=== PATIENT | female | born 1930 | race Caucasian/White ===

== ENCOUNTER 2017-07-03 23:23 | Inpatient (IN) ==
[2017-07-03] MEDS ORDERED: ADENOSINE 6 MG/2 ML VIAL ONE (23:32)
[2017-07-04] MEDS ORDERED: SODIUM CHLORIDE 0.9% 500 ML IV STA (00:43)
[2017-07-04 01:22] LABS: Basophils # 0.1 10*3/uL (0.0-0.2); Basophils % 0.2 % (0.0-0.8); Immature Granulocytes % 0.6 %; Immature Granulocytes Absolute 0.15 #; Lymphocytes # 0.8 10*3/uL (1.4-4.0); Lymphocytes % 3.4 % (21.3-54.2); Mean Corpuscular HGB Conc 36.1 GM/DL (32-36); Mean Corpuscular Hemoglobin 29 PG (27-34); Mean Corpuscular Volume 79.5 FL (87-102); Mean Platelet Volume 9.3 FL (9.6-12.0); Monocytes # 1.6 10*3/uL (0.11-0.8); Neutrophils # 20.8 10*3/uL (1.4-7.4); Neutrophils % 88.8 % (38.7-73.9); Platelet Count 306 T/CUMM (130-400); Red Blood Count 4.53 MC/CUMM (3.8-5.5); Red Cell Distribution Width 11.8 % (9.3-17.3); White Blood Count 23.4 T/CUMM (4-12)
[2017-07-04 01:26] LABS: Apearance,Urine CLEAR (Clear); Bacteria,Urine Occasional /HPF (Few); Bilirubin,Urine Negative (Negative); Blood, Urine Negative (Negative); Glucose,Urine (UA) Negative (Negative); Ketones,Urine Negative (Negative); Nitrite,Urine Negative (Negative); Protein,Urine Negative; RBC,Urine 2 /HPF (0-4); Urine Color Yellow (Yellow); Urine Specific Gravity 1.009 (1.001-1.035); Urine Urobilinogen < 2.0 EU/DL (0.2-1.0); WBC,Urine 13 /HPF (0-6)
[2017-07-04 01:28] LABS: PT Patient Result 10.1 SECS
[2017-07-04 01:33] LABS: Barbiturates Screen,Urine Negative (Negative); Benzodiazepines Screen,Urine Positive (Negative); Cannabinoid Screen,Urine Negative (Negative); Opiate Screen,Urine Negative (Negative); Phencyclidine Screen,Urine Negative (Negative)
[2017-07-04 02:00] LABS: Albumin 3.5 G/DL (3.4-5.0); Bilirubin,Total 0.9 MG/DL (0.2-1.0); Calcium 8.4 MG/DL (8.5-10.1); Magnesium 1.4 MG/DL (1.8-2.4); Osmolality,Calculated 228.2 MOS/KG (273-304); Potassium 2.6 MMOL/L (3.5-5.1); Total Protein 6.9 G/DL (6.4-8.3)
[2017-07-04 02:06] LABS: Troponin I Only 0.078 NG/ML (0.00-0.045)
[2017-07-04] MEDS ORDERED: MAGNESIUM SULF RIDER 2 GM in PREMIX 1 EACH IV STA (02:09)
[2017-07-04] MEDS ORDERED: POTASSIUM CHLORIDE RIDER 20 MEQ in PREMIX 1 EACH IV STA (02:09)
[2017-07-04] MEDS ORDERED: MAGNESIUM SULF RIDER 50 ML IV ONE (02:14)
[2017-07-04] MEDS ORDERED: MEROPENEM 1,000 MG VIAL IV ONE (03:36)
[2017-07-04] MEDS: MEROPENEM 1,000 MG in SODIUM CHLORIDE 0.9% 100 ML IV SCH ×2 (03:52→17:12)
[2017-07-04 04:01] LABS: Band Neutrophils 8 % (0-10); Lymphocytes 5 % (20-55); Platelet Estimate Normal; Segmented Neutrophils 81 % (50-85); Total Cells Counted 100
[2017-07-04] MEDS ORDERED: ACETAMINOPHEN 325 MG TABLET PO PRN (05:03)
[2017-07-04] MEDS ORDERED: ONDANSETRON 4 MG/2 ML VIAL IV PRN (05:03)
[2017-07-04] MEDS: SODIUM CHLORIDE 3% INJ 100 ML IV SCH ×2 (05:41→06:44)
[2017-07-04] MEDS ORDERED: VANCOMYCIN INJ 1,500 MG in SODIUM CHLORIDE 0.9% 500 ML IV SCH (06:30)
[2017-07-04] MEDS: SODIUM CHLORIDE 0.9% 1,000 ML IV SCH (06:43)
[2017-07-04 07:35] LABS: Basophils % 0.1 % (0.0-0.8); Hematocrit 31.5 VOL% (35.7-47.0); Hemoglobin 11.7 GM/DL (12.0-16.0); Immature Granulocytes % 0.6 %; Immature Granulocytes Absolute 0.13 #; Lymphocytes # 1.2 10*3/uL (1.4-4.0); Mean Corpuscular HGB Conc 37.1 GM/DL (32-36); Mean Corpuscular Hemoglobin 30 PG (27-34); Mean Corpuscular Volume 79.7 FL (87-102); Mean Platelet Volume 9.6 FL (9.6-12.0); Monocytes # 1.2 10*3/uL (0.11-0.8); Neutrophils # 20.6 10*3/uL (1.4-7.4); Neutrophils % 89.3 % (38.7-73.9); Platelet Count 292 T/CUMM (130-400); Red Blood Count 3.95 MC/CUMM (3.8-5.5); Red Cell Distribution Width 11.9 % (9.3-17.3); White Blood Count 23.1 T/CUMM (4-12)
[2017-07-04 08:08] LABS: Albumin 3.1 G/DL (3.4-5.0); Bilirubin,Total 0.7 MG/DL (0.2-1.0); Calcium 8.2 MG/DL (8.5-10.1); Osmolality,Calculated 233.8 MOS/KG (273-304); PT Patient Result 10.6 SECS; Partial Thromboplastin Time 30.2 SECS (0-40); Potassium 3.1 MMOL/L (3.5-5.1); Total Protein 6.1 G/DL (6.4-8.3)
[2017-07-04] MEDS: amLODIPine 5 MG TABLET PO SCH (09:46)
[2017-07-04] MEDS: GABAPENTIN 100 MG CAPSULE PO SCH ×3 (09:46→13:33)
[2017-07-04 09:49] LABS: Hypochromasia 2+; Lymphocytes 5 % (20-55); Microcytosis 1+; Platelet Estimate Adequate; Segmented Neutrophils 92 % (50-85); Total Cells Counted 100
[2017-07-04] MEDS: ENOXAPARIN 40 MG/0.4 ML SYRINGE SUBCUT SCH (09:52)
[2017-07-04] MEDS ORDERED: MEROPENEM 1,000 MG in SODIUM CHLORIDE 0.9% 50 ML IV SCH (12:30)
[2017-07-04 15:53] LABS: Thyroid Stimulating Hormone 0.834 uIU/ml (0.358-3.74)
[2017-07-04] MEDS ORDERED: ACETAMINOPHEN 500 MG TABLET PO PRN (17:31)
[2017-07-04] MEDS ORDERED: DOCUSATE SODIUM 100 MG CAPSULE PO PRN (17:31)
[2017-07-04] MEDS: traMADol 50 MG TABLET PO SCH ×2 (18:05→21:38)
[2017-07-04] MEDS: DICLOFENAC 1% GEL 100 GM TUBE TOP SCH (21:37)
[2017-07-04] MEDS: TRIAMCINOLONE 0.1% CREAM 80 GM TUBE TOP SCH (21:37)
[2017-07-04] MEDS: MEMANTINE 10 MG TABLET PO SCH (21:38)
[2017-07-04] MEDS: DONEPEZIL 10 MG TABLET PO SCH (21:38)
[2017-07-05 02:03] LABS: Basophils % 0.2 % (0.0-0.8); Hematocrit 32.2 VOL% (35.7-47.0); Hemoglobin 11.3 GM/DL (12.0-16.0); Immature Granulocytes % 0.5 %; Immature Granulocytes Absolute 0.12 #; Lymphocytes # 1.3 10*3/uL (1.4-4.0); Lymphocytes % 5.6 % (21.3-54.2); Mean Corpuscular HGB Conc 35.1 GM/DL (32-36); Mean Corpuscular Hemoglobin 29 PG (27-34); Mean Corpuscular Volume 82.4 FL (87-102); Mean Platelet Volume 9.1 FL (9.6-12.0); Monocytes # 1.7 10*3/uL (0.11-0.8); Monocytes % 7.5 % (1.7-12.7); Neutrophils # 19.5 10*3/uL (1.4-7.4); Neutrophils % 86.2 % (38.7-73.9); Platelet Count 288 T/CUMM (130-400); Red Blood Count 3.91 MC/CUMM (3.8-5.5); Red Cell Distribution Width 12.5 % (9.3-17.3); White Blood Count 22.7 T/CUMM (4-12)
[2017-07-05 02:44] LABS: Calcium 8.4 MG/DL (8.5-10.1); Free T4 (Free Thyroxine) 1.3 NG/DL (0.76-1.46); Magnesium 2.3 MG/DL (1.8-2.4); Osmolality,Calculated 247.6 MOS/KG (273-304); Potassium 2.9 MMOL/L (3.5-5.1); Risk Ratio 1.98; VLDL CHOLESTEROL 11.8 MG/DL
[2017-07-05 04:11] LABS: Band Neutrophils 4 % (0-10); Lymphocytes 10 % (20-55); Segmented Neutrophils 81 % (50-85); Total Cells Counted 100
[2017-07-05 04:12] LABS: Platelet Estimate Normal
[2017-07-05] MEDS: SODIUM CHLORIDE 0.9% 1,000 ML IV SCH (08:36)
[2017-07-05] MEDS: LIDOCAINE 5% PATCH TRANSDERM SCH (10:15)
[2017-07-05] MEDS: ESCITALOPRAM 10 MG TABLET PO SCH (10:16)
[2017-07-05] MEDS: MEMANTINE 10 MG TABLET PO SCH ×2 (10:17→21:41)
[2017-07-05] MEDS: PRAVASTATIN 40 MG TABLET PO SCH (10:17)
[2017-07-05] MEDS: amLODIPine 5 MG TABLET PO SCH (10:17)
[2017-07-05] MEDS: GABAPENTIN 100 MG CAPSULE PO SCH (10:17)
[2017-07-05] MEDS: MULTIVITAMIN (OCUVITE) TABLET PO SCH (10:17)
[2017-07-05] MEDS: LEVOTHYROXINE 100 MCG TABLET PO SCH (10:17)
[2017-07-05] MEDS: ENOXAPARIN 40 MG/0.4 ML SYRINGE SUBCUT SCH (10:18)
[2017-07-05] MEDS: DICLOFENAC 1% GEL 100 GM TUBE TOP SCH ×2 (10:18→21:42)
[2017-07-05] MEDS: TRIAMCINOLONE 0.1% CREAM 80 GM TUBE TOP SCH ×2 (10:18→21:42)
[2017-07-05] MEDS: traMADol 50 MG TABLET PO SCH ×4 (10:28→21:41)
[2017-07-05] MEDS ORDERED: ALPRAZolam 0.25 MG TABLET PO SCH (11:00)
[2017-07-05] MEDS ORDERED: ACETAMINOPHEN 325 MG/10.15 ML UDCUP PO SCH (16:30)
[2017-07-05] MEDS: ACETAMINOPHEN 325 MG/10.15 ML UDCUP PO SCH (21:41)
[2017-07-05] MEDS: DONEPEZIL 10 MG TABLET PO SCH (21:41)
[2017-07-06 06:51] LABS: Basophils # 0.1 10*3/uL (0.0-0.2); Basophils % 0.3 % (0.0-0.8); Eosinophils # 0.1 10*3/uL (0.0-0.87); Eosinophils % 0.2 % (0.00-10.9); Hematocrit 35.1 VOL% (35.7-47.0); Hemoglobin 11.8 GM/DL (12.0-16.0); Immature Granulocytes % 0.7 %; Immature Granulocytes Absolute 0.17 #; Lymphocytes # 1.4 10*3/uL (1.4-4.0); Lymphocytes % 5.7 % (21.3-54.2); Mean Corpuscular HGB Conc 33.6 GM/DL (32-36); Mean Corpuscular Hemoglobin 29 PG (27-34); Mean Corpuscular Volume 85.2 FL (87-102); Mean Platelet Volume 9.4 FL (9.6-12.0); Monocytes % 8.2 % (1.7-12.7); Neutrophils # 20.6 10*3/uL (1.4-7.4); Neutrophils % 84.9 % (38.7-73.9); Platelet Count 286 T/CUMM (130-400); Red Blood Count 4.12 MC/CUMM (3.8-5.5); Red Cell Distribution Width 12.9 % (9.3-17.3); White Blood Count 24.3 T/CUMM (4-12)
[2017-07-06 07:23] LABS: Calcium 8.8 MG/DL (8.5-10.1); Magnesium 2.3 MG/DL (1.8-2.4); Osmolality,Calculated 258.8 MOS/KG (273-304)
[2017-07-06 07:25] LABS: Lymphocytes 7 % (20-55); Segmented Neutrophils 85 % (50-85); Total Cells Counted 100
[2017-07-06 07:26] LABS: Hypochromasia 2+; Platelet Estimate Adequate; Target Cells Slight
[2017-07-06] MEDS: ACETAMINOPHEN 325 MG/10.15 ML UDCUP PO SCH ×3 (09:15→21:57)
[2017-07-06] MEDS: PRAVASTATIN 40 MG TABLET PO SCH (09:15)
[2017-07-06] MEDS: ESCITALOPRAM 10 MG TABLET PO SCH (09:16)
[2017-07-06] MEDS: MULTIVITAMIN (OCUVITE) TABLET PO SCH (09:16)
[2017-07-06] MEDS: MEMANTINE 10 MG TABLET PO SCH ×2 (09:16→23:36)
[2017-07-06] MEDS: traMADol 50 MG TABLET PO SCH ×3 (09:16→21:56)
[2017-07-06] MEDS: POTASSIUM CHLORIDE 20 MEQ TABLET PO SCH ×2 (09:16→10:51)
[2017-07-06] MEDS: DICLOFENAC 1% GEL 100 GM TUBE TOP SCH ×2 (09:17→21:57)
[2017-07-06] MEDS: LEVOTHYROXINE 100 MCG TABLET PO SCH (09:17)
[2017-07-06] MEDS: ENOXAPARIN 40 MG/0.4 ML SYRINGE SUBCUT SCH (09:17)
[2017-07-06] MEDS: LIDOCAINE 5% PATCH TRANSDERM SCH (09:17)
[2017-07-06] MEDS: TRIAMCINOLONE 0.1% CREAM 80 GM TUBE TOP SCH ×2 (09:18→21:57)
[2017-07-06] MEDS ORDERED: VITAMIN A & D OINT 56.7 GM TUBE TOP PRN (10:03)
[2017-07-06] MEDS: PIPERACILLIN/TAZOBACTAM 3,375 MG in SODIUM CHLORIDE 0.9% 100 ML IV SCH ×2 (10:52→16:58)
[2017-07-06] MEDS: VANCOMYCIN INJ 1,250 MG in SODIUM CHLORIDE 0.45% 250 ML IV SCH (14:41)
[2017-07-06] MEDS: DONEPEZIL 10 MG TABLET PO SCH (21:56)
[2017-07-07] MEDS: VANCOMYCIN INJ 1,250 MG in SODIUM CHLORIDE 0.45% 250 ML IV SCH (01:20)
[2017-07-07] MEDS: PIPERACILLIN/TAZOBACTAM 3,375 MG in SODIUM CHLORIDE 0.9% 100 ML IV SCH ×2 (04:05→08:48)
[2017-07-07 05:35] LABS: Basophils # 0.1 10*3/uL (0.0-0.2); Basophils % 0.4 % (0.0-0.8); Eosinophils # 0.3 10*3/uL (0.0-0.87); Eosinophils % 1.3 % (0.00-10.9); Hematocrit 34.3 VOL% (35.7-47.0); Hemoglobin 11.4 GM/DL (12.0-16.0); Immature Granulocytes % 0.6 %; Immature Granulocytes Absolute 0.12 #; Lymphocytes # 1.9 10*3/uL (1.4-4.0); Lymphocytes % 9.4 % (21.3-54.2); Mean Corpuscular HGB Conc 33.2 GM/DL (32-36); Mean Corpuscular Hemoglobin 29 PG (27-34); Mean Corpuscular Volume 86.6 FL (87-102); Mean Platelet Volume 9.8 FL (9.6-12.0); Monocytes # 1.8 10*3/uL (0.11-0.8); Monocytes % 9.1 % (1.7-12.7); Neutrophils # 15.6 10*3/uL (1.4-7.4); Neutrophils % 79.2 % (38.7-73.9); Platelet Count 291 T/CUMM (130-400); Red Blood Count 3.96 MC/CUMM (3.8-5.5); Red Cell Distribution Width 13.1 % (9.3-17.3); White Blood Count 19.7 T/CUMM (4-12)
[2017-07-07 06:01] LABS: Calcium 8.8 MG/DL (8.5-10.1); Magnesium 2.4 MG/DL (1.8-2.4); Osmolality,Calculated 266.2 MOS/KG (273-304); Potassium 3.7 MMOL/L (3.5-5.1)
[2017-07-07] MEDS: ACETAMINOPHEN 325 MG/10.15 ML UDCUP PO SCH ×3 (08:50→20:32)
[2017-07-07] MEDS: ENOXAPARIN 40 MG/0.4 ML SYRINGE SUBCUT SCH (08:50)
[2017-07-07] MEDS: PRAVASTATIN 40 MG TABLET PO SCH (08:50)
[2017-07-07] MEDS: TRIAMCINOLONE 0.1% CREAM 80 GM TUBE TOP SCH ×2 (08:51→20:33)
[2017-07-07] MEDS: MULTIVITAMIN (OCUVITE) TABLET PO SCH (08:51)
[2017-07-07] MEDS: DICLOFENAC 1% GEL 100 GM TUBE TOP SCH ×2 (08:51→20:33)
[2017-07-07] MEDS: ESCITALOPRAM 10 MG TABLET PO SCH (08:51)
[2017-07-07] MEDS: LEVOTHYROXINE 100 MCG TABLET PO SCH (08:51)
[2017-07-07] MEDS: traMADol 50 MG TABLET PO SCH ×3 (08:51→20:32)
[2017-07-07] MEDS: MEMANTINE 10 MG TABLET PO SCH ×2 (08:51→20:32)
[2017-07-07] MEDS: LIDOCAINE 5% PATCH TRANSDERM SCH (08:52)
[2017-07-07] MEDS ORDERED: BISACODYL 10 MG SUPP RECTAL ONE (12:00)
[2017-07-07] MEDS: ALPRAZolam 0.25 MG TABLET PO SCH ×2 (14:55→20:32)
[2017-07-07] MEDS: DONEPEZIL 10 MG TABLET PO SCH (20:32)
[2017-07-08] MEDS: LEVOTHYROXINE 100 MCG TABLET PO SCH (06:24)
[2017-07-08] MEDS: PRAVASTATIN 40 MG TABLET PO SCH (09:39)
[2017-07-08] MEDS: ENOXAPARIN 40 MG/0.4 ML SYRINGE SUBCUT SCH (09:39)
[2017-07-08] MEDS: ACETAMINOPHEN 325 MG/10.15 ML UDCUP PO SCH ×4 (09:40→20:04)
[2017-07-08] MEDS: ESCITALOPRAM 10 MG TABLET PO SCH (09:40)
[2017-07-08] MEDS: TRIAMCINOLONE 0.1% CREAM 80 GM TUBE TOP SCH ×2 (09:40→20:05)
[2017-07-08] MEDS: traMADol 50 MG TABLET PO SCH ×3 (09:40→20:04)
[2017-07-08] MEDS: ALPRAZolam 0.25 MG TABLET PO SCH ×3 (09:40→20:04)
[2017-07-08] MEDS: MULTIVITAMIN (OCUVITE) TABLET PO SCH (09:40)
[2017-07-08] MEDS: MEMANTINE 10 MG TABLET PO SCH ×2 (09:40→20:04)
[2017-07-08] MEDS: LIDOCAINE 5% PATCH TRANSDERM SCH (09:42)
[2017-07-08] MEDS: DICLOFENAC 1% GEL 100 GM TUBE TOP SCH ×2 (09:45→20:05)
[2017-07-08] MEDS: ACETAMINOPHEN 650 MG SUPP RECTAL PRN ×2 (13:59→18:30)
[2017-07-08 15:08] LABS: Apearance,Urine CLEAR (Clear); Bilirubin,Urine Negative (Negative); Blood, Urine Small mg/dL (Negative); Glucose,Urine (UA) Negative (Negative); Ketones,Urine 20 mg/dL (Negative); Mucus,Urine Occasional /LPF (Occasional); Nitrite,Urine Negative (Negative); Protein,Urine 100 MG/DL; RBC,Urine 5 /HPF (0-4); Squamous Epithelial Cell,Urine Occasional /HPF (0-10); Urine Color Yellow (Yellow); Urine Urobilinogen < 2.0 EU/DL (0.2-1.0); WBC,Urine 6 /HPF (0-6)
[2017-07-08 16:58] LABS: Basophils # 0.1 10*3/uL (0.0-0.2); Basophils % 0.3 % (0.0-0.8); Eosinophils # 0.1 10*3/uL (0.0-0.87); Eosinophils % 0.8 % (0.00-10.9); Hematocrit 35.6 VOL% (35.7-47.0); Hemoglobin 11.6 GM/DL (12.0-16.0); Immature Granulocytes % 0.6 %; Lymphocytes # 1.9 10*3/uL (1.4-4.0); Lymphocytes % 10.7 % (21.3-54.2); Mean Corpuscular HGB Conc 32.6 GM/DL (32-36); Mean Corpuscular Hemoglobin 28 PG (27-34); Mean Corpuscular Volume 87.3 FL (87-102); Mean Platelet Volume 9.7 FL (9.6-12.0); Monocytes # 1.9 10*3/uL (0.11-0.8); Monocytes % 10.6 % (1.7-12.7); Neutrophils # 13.7 10*3/uL (1.4-7.4); Platelet Count 321 T/CUMM (130-400); Red Blood Count 4.08 MC/CUMM (3.8-5.5); Red Cell Distribution Width 13.3 % (9.3-17.3); White Blood Count 17.8 T/CUMM (4-12)
[2017-07-08 17:09] LABS: Calcium 8.8 MG/DL (8.5-10.1); Magnesium 2.2 MG/DL (1.8-2.4); Potassium 3.4 MMOL/L (3.5-5.1)
[2017-07-08] MEDS: DONEPEZIL 10 MG TABLET PO SCH (20:04)
[2017-07-09] MEDS: LEVOTHYROXINE 100 MCG TABLET PO SCH (05:57)
[2017-07-09] MEDS: TRIAMCINOLONE 0.1% CREAM 80 GM TUBE TOP SCH ×2 (09:10→20:25)
[2017-07-09] MEDS: DICLOFENAC 1% GEL 100 GM TUBE TOP SCH ×2 (09:10→20:25)
[2017-07-09] MEDS: ENOXAPARIN 40 MG/0.4 ML SYRINGE SUBCUT SCH (09:11)
[2017-07-09] MEDS: LIDOCAINE 5% PATCH TRANSDERM SCH (09:11)
[2017-07-09] MEDS: ALPRAZolam 0.25 MG TABLET PO SCH ×3 (09:12→20:26)
[2017-07-09] MEDS: PRAVASTATIN 40 MG TABLET PO SCH (09:12)
[2017-07-09] MEDS: MULTIVITAMIN (OCUVITE) TABLET PO SCH (09:12)
[2017-07-09] MEDS: ESCITALOPRAM 10 MG TABLET PO SCH (09:12)
[2017-07-09] MEDS: traMADol 50 MG TABLET PO SCH ×3 (09:12→20:25)
[2017-07-09] MEDS: MEMANTINE 10 MG TABLET PO SCH ×2 (09:12→20:26)
[2017-07-09] MEDS: ACETAMINOPHEN 325 MG/10.15 ML UDCUP PO SCH ×3 (09:12→20:25)
[2017-07-09] MEDS: DONEPEZIL 10 MG TABLET PO SCH (20:25)
[2017-07-10] MEDS: LEVOTHYROXINE 100 MCG TABLET PO SCH (07:30)
[2017-07-10] MEDS: PRAVASTATIN 40 MG TABLET PO SCH (10:00)
[2017-07-10] MEDS: ALPRAZolam 0.25 MG TABLET PO SCH ×2 (10:00→15:02)
[2017-07-10] MEDS: MULTIVITAMIN (OCUVITE) TABLET PO SCH (10:00)
[2017-07-10] MEDS: ESCITALOPRAM 10 MG TABLET PO SCH (10:00)
[2017-07-10] MEDS: MEMANTINE 10 MG TABLET PO SCH (10:00)
[2017-07-10] MEDS: ACETAMINOPHEN 325 MG/10.15 ML UDCUP PO SCH ×2 (10:01→15:02)
[2017-07-10] MEDS: ENOXAPARIN 40 MG/0.4 ML SYRINGE SUBCUT SCH (10:07)
[2017-07-10] MEDS: LIDOCAINE 5% PATCH TRANSDERM SCH (10:08)
[2017-07-10] MEDS: traMADol 50 MG TABLET PO SCH ×2 (10:13→15:02)
[2017-07-10] MEDS: TRIAMCINOLONE 0.1% CREAM 80 GM TUBE TOP SCH (10:16)
[2017-07-10] MEDS: DICLOFENAC 1% GEL 100 GM TUBE TOP SCH (10:18)
[2017-07-10 12:16] VITALS: BP 137/64
== END 2017-07-10 13:40 | DRG 871 ==
LOC: EDBD → EDUNIT# → N.ED 23:23 → SUATTDRO 07-04 05:03 → N.EDINP 07-04 05:03 → N.ICU 07-04 05:30 → N.2E 07-04 17:10
PROVIDERS: ADMIT Internal Medicine; ATTEND Internal Medicine Geriatric Medicine

== ENCOUNTER 2018-02-28 15:06 | Inpatient (IN) ==
[2018-02-28] MEDS ORDERED: SODIUM CHLORIDE 0.9% 2,050 ML IV ONE (15:33)
[2018-02-28 16:03] LABS: Basophils # 0.1 10*3/uL (0.0-0.2); Basophils % 0.4 % (0.0-0.8); Hemoglobin 10.8 GM/DL (12.0-16.0); Immature Granulocytes % 0.4 %; Immature Granulocytes Absolute 0.07 #; Lymphocytes # 1.7 10*3/uL (1.4-4.0); Lymphocytes % 10.1 % (21.3-54.2); Mean Corpuscular Hemoglobin 26 PG (27-34); Mean Corpuscular Volume 87.4 FL (87-102); Mean Platelet Volume 9.7 FL (9.6-12.0); Monocytes % 6.1 % (1.7-12.7); Platelet Count 393 T/CUMM (130-400); Red Blood Count 4.12 MC/CUMM (3.8-5.5); White Blood Count 16.8 T/CUMM (4-12)
[2018-02-28 16:10] LABS: Lactic Acid 1.1 MMOL/L (0.4-2.0)
[2018-02-28 16:16] LABS: Albumin 2.2 G/DL (3.4-5.0); Bilirubin,Total 0.5 MG/DL (0.2-1.0); Calcium 8.4 MG/DL (8.5-10.1); Osmolality,Calculated 287.1 MOS/KG (273-304); Potassium 4.6 MMOL/L (3.5-5.1); Total Protein 7.4 G/DL (6.4-8.3)
[2018-02-28 16:21] LABS: INR 1.1; PT Patient Result 11.3 SECS
[2018-02-28 16:46] LABS: Apearance,Urine CLOUDY (Clear); Bilirubin,Urine Negative (Negative); Blood, Urine Small mg/dL (Negative); Glucose,Urine (UA) Negative (Negative); Ketones,Urine 20 mg/dL (Negative); Mucus,Urine Occasional /LPF (Occasional); Nitrite,Urine Negative (Negative); Protein,Urine 100 MG/DL; RBC,Urine 7 /HPF (0-4); Squamous Epithelial Cell,Urine Occasional /HPF (0-10); Urine Color Amber (Yellow); Urine Specific Gravity 1.014 (1.001-1.035); WBC,Urine 825 /HPF (0-6)
[2018-02-28] MEDS ORDERED: LEVOFLOXACIN INJ 500 MG in PREMIX 1 EACH IV STA (16:52)
[2018-02-28] MEDS: SODIUM CHLORIDE 0.9% 1,000 ML IV SCH (21:58)
[2018-02-28] MEDS: AZTREONAM 500 MG in SYRINGE 1 EACH IV SCH (21:59)
[2018-02-28] MEDS: VANCOMYCIN INJ 1,000 MG in SODIUM CHLORIDE 0.9% 250 ML IV SCH (22:07)
[2018-03-01] MEDS: AZTREONAM 500 MG in SYRINGE 1 EACH IV SCH ×2 (05:20→17:35)
[2018-03-01] MEDS: LEVOTHYROXINE 88 MCG TABLET PO SCH (06:46)
[2018-03-01 07:06] LABS: Basophils # 0.1 10*3/uL (0.0-0.2); Basophils % 0.4 % (0.0-0.8); Eosinophils % 0.1 % (0.00-10.9); Hematocrit 30.5 VOL% (35.7-47.0); Hemoglobin 9.1 GM/DL (12.0-16.0); Immature Granulocytes % 0.3 %; Immature Granulocytes Absolute 0.05 #; Lymphocytes # 1.8 10*3/uL (1.4-4.0); Lymphocytes % 10.8 % (21.3-54.2); Mean Corpuscular HGB Conc 29.8 GM/DL (32-36); Mean Corpuscular Hemoglobin 26 PG (27-34); Mean Corpuscular Volume 88.2 FL (87-102); Mean Platelet Volume 9.6 FL (9.6-12.0); Monocytes # 1.1 10*3/uL (0.11-0.8); Monocytes % 6.4 % (1.7-12.7); Neutrophils # 13.4 10*3/uL (1.4-7.4); Platelet Count 333 T/CUMM (130-400); Red Blood Count 3.46 MC/CUMM (3.8-5.5); Red Cell Distribution Width 14.1 % (9.3-17.3); White Blood Count 16.3 T/CUMM (4-12)
[2018-03-01 07:41] LABS: Calcium 7.8 MG/DL (8.5-10.1); Osmolality,Calculated 291.6 MOS/KG (273-304); Potassium 3.8 MMOL/L (3.5-5.1)
[2018-03-01] MEDS: SODIUM CHLORIDE 0.9% 1,000 ML IV SCH (08:50)
[2018-03-01] MEDS: LEVOFLOXACIN INJ 750 MG in PREMIX 1 EACH IV SCH (08:52)
[2018-03-01] MEDS: SODIUM CHLORIDE 0.45% 1,000 ML IV SCH (08:55)
[2018-03-01] MEDS: ACETAMINOPHEN 650 MG SUPP RECTAL PRN (15:26)
[2018-03-01] MEDS: metroNIDAZOLE INJ 500 MG in PREMIX 1 EACH IV SCH (18:24)
[2018-03-01] MEDS: VANCOMYCIN INJ 1,000 MG in SODIUM CHLORIDE 0.9% 250 ML IV SCH (22:09)
[2018-03-02] MEDS: AZTREONAM 500 MG in SYRINGE 1 EACH IV SCH ×3 (01:42→16:30)
[2018-03-02] MEDS: metroNIDAZOLE INJ 500 MG in PREMIX 1 EACH IV SCH ×3 (01:46→16:59)
[2018-03-02] MEDS: SODIUM CHLORIDE 0.45% 1,000 ML IV SCH ×3 (01:47→20:03)
[2018-03-02 06:42] LABS: Basophils % 0.2 % (0.0-0.8); Eosinophils % 0.1 % (0.00-10.9); Hematocrit 32.6 VOL% (35.7-47.0); Hemoglobin 10.1 GM/DL (12.0-16.0); Immature Granulocytes % 0.5 %; Immature Granulocytes Absolute 0.08 #; Lymphocytes # 1.3 10*3/uL (1.4-4.0); Lymphocytes % 8.2 % (21.3-54.2); Mean Corpuscular Hemoglobin 27 PG (27-34); Mean Corpuscular Volume 85.6 FL (87-102); Mean Platelet Volume 9.6 FL (9.6-12.0); Monocytes % 6.3 % (1.7-12.7); Neutrophils # 13.8 10*3/uL (1.4-7.4); Neutrophils % 84.7 % (38.7-73.9); Platelet Count 368 T/CUMM (130-400); Red Blood Count 3.81 MC/CUMM (3.8-5.5); Red Cell Distribution Width 14.1 % (9.3-17.3); White Blood Count 16.3 T/CUMM (4-12)
[2018-03-02] MEDS: LEVOFLOXACIN INJ 750 MG in PREMIX 1 EACH IV SCH (06:49)
[2018-03-02 07:04] LABS: Albumin 1.9 G/DL (3.4-5.0); Bilirubin,Total 0.4 MG/DL (0.2-1.0); Calcium 8.2 MG/DL (8.5-10.1); Osmolality,Calculated 285.8 MOS/KG (273-304); Total Protein 6.4 G/DL (6.4-8.3)
[2018-03-02] MEDS ORDERED: POTASSIUM PHOSPHATE 30 MMOL in SODIUM CHLORIDE 0.9% 250 ML IV ONE (07:06)
[2018-03-02] MEDS: LEVOTHYROXINE 88 MCG TABLET PO SCH (07:37)
[2018-03-02] MEDS ORDERED: ACETAMINOPHEN 500 MG TABLET PO PRN (12:24)
[2018-03-02] MEDS ORDERED: DOCUSATE SODIUM 100 MG CAPSULE PO PRN (12:24)
[2018-03-02] MEDS: amLODIPine 5 MG TABLET PO SCH (14:33)
[2018-03-02] MEDS: ALPRAZolam 0.5 MG TABLET PO SCH ×2 (14:34→20:35)
[2018-03-02] MEDS: ESCITALOPRAM 10 MG TABLET PO SCH (14:34)
[2018-03-02] MEDS: risperiDONE 0.5 MG TABLET PO SCH (14:34)
[2018-03-02] MEDS: GABAPENTIN 100 MG CAPSULE PO SCH ×2 (16:30→20:35)
[2018-03-02] MEDS: KETOROLAC 0.5% OPH SOLN 3 ML BOTTLE BOTH EYES SCH ×3 (16:30→20:47)
[2018-03-02] MEDS: DONEPEZIL 10 MG TABLET PO SCH (20:35)
[2018-03-02] MEDS: MEMANTINE 10 MG TABLET PO SCH (20:35)
[2018-03-02] MEDS: traMADol 50 MG TABLET PO SCH (20:35)
[2018-03-02] MEDS: VANCOMYCIN INJ 1,000 MG in SODIUM CHLORIDE 0.9% 250 ML IV SCH (20:35)
[2018-03-03] MEDS: AZTREONAM 500 MG in SYRINGE 1 EACH IV SCH ×2 (00:56→11:43)
[2018-03-03] MEDS: metroNIDAZOLE INJ 500 MG in PREMIX 1 EACH IV SCH ×2 (00:59→11:41)
[2018-03-03] MEDS: SODIUM CHLORIDE 0.45% 1,000 ML IV SCH (01:30)
[2018-03-03] MEDS ORDERED: METOPROLOL TARTRATE 5 MG/5 ML VIAL IV ONE (03:36)
[2018-03-03] MEDS ORDERED: AMIODARONE INJ 150 MG in DEXTROSE 5% 100 ML IV ONE (04:01)
[2018-03-03] MEDS ORDERED: AMIODARONE INJ 450 MG in DEXTROSE 5% 241 ML IV SCH ×2 (04:30→10:30)
[2018-03-03] MEDS: ACETAMINOPHEN 650 MG SUPP RECTAL PRN (05:15)
[2018-03-03] MEDS: LEVOTHYROXINE 88 MCG TABLET PO SCH (06:02)
[2018-03-03 06:48] LABS: Basophils % 0.2 % (0.0-0.8); Hematocrit 32.3 VOL% (35.7-47.0); Hemoglobin 10.5 GM/DL (12.0-16.0); Immature Granulocytes % 0.5 %; Immature Granulocytes Absolute 0.09 #; Lymphocytes # 0.9 10*3/uL (1.4-4.0); Lymphocytes % 5.1 % (21.3-54.2); Mean Corpuscular HGB Conc 32.5 GM/DL (32-36); Mean Corpuscular Hemoglobin 27 PG (27-34); Mean Corpuscular Volume 81.6 FL (87-102); Mean Platelet Volume 9.7 FL (9.6-12.0); Monocytes # 1.1 10*3/uL (0.11-0.8); Monocytes % 6.2 % (1.7-12.7); Neutrophils # 15.2 10*3/uL (1.4-7.4); Platelet Count 414 T/CUMM (130-400); Red Blood Count 3.96 MC/CUMM (3.8-5.5); Red Cell Distribution Width 14.1 % (9.3-17.3); White Blood Count 17.3 T/CUMM (4-12)
[2018-03-03 07:12] LABS: Bilirubin,Total 0.6 MG/DL (0.2-1.0); Calcium 8.2 MG/DL (8.5-10.1); Total Protein 6.4 G/DL (6.4-8.3)
[2018-03-03] MEDS ORDERED: ENOXAPARIN 60 MG/0.6 ML SYRINGE SUBCUT SCH (09:30)
[2018-03-03] MEDS ORDERED: POTASSIUM CHLORIDE 20 MEQ TABLET PO ONE (09:31)
[2018-03-03] MEDS: LEVOFLOXACIN INJ 750 MG in PREMIX 1 EACH IV SCH (09:39)
[2018-03-03 09:56] LABS: Free T4 (Free Thyroxine) 0.98 NG/DL (0.76-1.46); Thyroid Stimulating Hormone 1.45 uIU/ml (0.358-3.74)
[2018-03-03] MEDS: traMADol 50 MG TABLET PO SCH ×2 (10:34→20:55)
[2018-03-03] MEDS: risperiDONE 0.5 MG TABLET PO SCH (10:35)
[2018-03-03] MEDS: PRAVASTATIN 40 MG TABLET PO SCH (10:36)
[2018-03-03] MEDS: ALPRAZolam 0.5 MG TABLET PO SCH ×3 (10:37→20:54)
[2018-03-03] MEDS: LORATADINE 10 MG TABLET PO SCH (10:37)
[2018-03-03] MEDS: MEMANTINE 10 MG TABLET PO SCH ×2 (10:39→20:55)
[2018-03-03] MEDS: MULTIVITAMIN (OCUVITE) TABLET PO SCH (10:39)
[2018-03-03] MEDS: ESCITALOPRAM 10 MG TABLET PO SCH (10:43)
[2018-03-03] MEDS: GABAPENTIN 100 MG CAPSULE PO SCH ×3 (10:44→20:54)
[2018-03-03] MEDS: MAGNESIUM HYDROXIDE SUSP 30 ML UDCUP PO SCH (10:44)
[2018-03-03] MEDS ORDERED: METOPROLOL TARTRATE 5 MG/5 ML VIAL IV PRN (11:03)
[2018-03-03] MEDS: KETOROLAC 0.5% OPH SOLN 3 ML BOTTLE BOTH EYES SCH ×4 (11:23→23:26)
[2018-03-03] MEDS: DILTIAZEM INJ 100 MG in SODIUM CHLORIDE 0.9% 100 ML IV SCH (11:51)
[2018-03-03] MEDS ORDERED: METOPROLOL TARTRATE 5 MG/5 ML VIAL IV SCH (12:00)
[2018-03-03 12:27] LABS: Troponin I Only 0.101 NG/ML (0.00-0.045)
[2018-03-03] MEDS: amLODIPine 5 MG TABLET PO SCH (13:20)
[2018-03-03] MEDS: MEROPENEM 1,000 MG in SYRINGE 1 EACH IV SCH ×2 (14:30→22:45)
[2018-03-03 14:55] LABS: INR 1.3; PT Patient Result 13.3 SECS; Partial Thromboplastin Time 32.4 SECS (0-40)
[2018-03-03] MEDS ORDERED: HEPARIN 5,000 UNIT/1 ML VIAL IV ONE (15:13)
[2018-03-03] MEDS: HEPARIN DRIP 25,000 UNITS/500 ML PREMIX IV SCH (15:39)
[2018-03-03] MEDS: VANCOMYCIN INJ 1,000 MG in SODIUM CHLORIDE 0.9% 250 ML IV SCH (15:59)
[2018-03-03] MEDS: FUROSEMIDE 40 MG/4 ML VIAL IV SCH (16:16)
[2018-03-03] MEDS: DONEPEZIL 10 MG TABLET PO SCH (20:55)
[2018-03-04 03:47] LABS: Basophils # 0.1 10*3/uL (0.0-0.2); Basophils % 0.3 % (0.0-0.8); Hematocrit 34.2 VOL% (35.7-47.0); Hemoglobin 10.7 GM/DL (12.0-16.0); Immature Granulocytes % 0.6 %; Immature Granulocytes Absolute 0.15 #; Lymphocytes # 2.1 10*3/uL (1.4-4.0); Lymphocytes % 7.7 % (21.3-54.2); Mean Corpuscular HGB Conc 31.3 GM/DL (32-36); Mean Corpuscular Hemoglobin 26 PG (27-34); Mean Platelet Volume 10.2 FL (9.6-12.0); Monocytes # 1.8 10*3/uL (0.11-0.8); Monocytes % 6.6 % (1.7-12.7); Neutrophils % 84.8 % (38.7-73.9); Platelet Count 380 T/CUMM (130-400); Red Blood Count 4.07 MC/CUMM (3.8-5.5); Red Cell Distribution Width 14.2 % (9.3-17.3); White Blood Count 27.1 T/CUMM (4-12)
[2018-03-04 04:14] LABS: Albumin 1.9 G/DL (3.4-5.0); Bilirubin,Total 0.4 MG/DL (0.2-1.0); Calcium 8.1 MG/DL (8.5-10.1); Osmolality,Calculated 280.1 MOS/KG (273-304); Potassium 2.9 MMOL/L (3.5-5.1); Total Protein 6.4 G/DL (6.4-8.3)
[2018-03-04 05:32] LABS: Band Neutrophils 2 % (0-10); Lymphocytes 9 % (20-55); Metamyelocytes 1 %; Platelet Estimate Normal; Segmented Neutrophils 84 % (50-85); Target Cells Slight; Total Cells Counted 100
[2018-03-04 05:33] LABS: Burr Cells Slight
[2018-03-04] MEDS: DILTIAZEM INJ 100 MG in SODIUM CHLORIDE 0.9% 100 ML IV SCH ×2 (06:26→15:41)
[2018-03-04] MEDS: LEVOTHYROXINE 88 MCG TABLET PO SCH (06:26)
[2018-03-04] MEDS: MEROPENEM 1,000 MG in SYRINGE 1 EACH IV SCH ×3 (06:26→21:15)
[2018-03-04] MEDS: FUROSEMIDE 40 MG/4 ML VIAL IV SCH ×2 (08:41→16:53)
[2018-03-04] MEDS: VANCOMYCIN INJ 1,000 MG in SODIUM CHLORIDE 0.9% 250 ML IV SCH (08:41)
[2018-03-04] MEDS: MAGNESIUM HYDROXIDE SUSP 30 ML UDCUP PO SCH (08:41)
[2018-03-04] MEDS: LORATADINE 10 MG TABLET PO SCH (08:42)
[2018-03-04] MEDS: GABAPENTIN 100 MG CAPSULE PO SCH ×3 (08:42→21:00)
[2018-03-04] MEDS: MULTIVITAMIN (OCUVITE) TABLET PO SCH (08:42)
[2018-03-04] MEDS: PRAVASTATIN 40 MG TABLET PO SCH (08:42)
[2018-03-04] MEDS: ESCITALOPRAM 10 MG TABLET PO SCH (08:42)
[2018-03-04] MEDS: risperiDONE 0.5 MG TABLET PO SCH (08:42)
[2018-03-04] MEDS: MEMANTINE 10 MG TABLET PO SCH ×2 (08:43→21:00)
[2018-03-04] MEDS: traMADol 50 MG TABLET PO SCH ×2 (08:43→21:00)
[2018-03-04] MEDS: KETOROLAC 0.5% OPH SOLN 3 ML BOTTLE BOTH EYES SCH ×4 (09:06→21:00)
[2018-03-04] MEDS: POTASSIUM CHLORIDE 20 MEQ/15 ML UDCUP PER TUBE PRN ×4 (13:32→21:05)
[2018-03-04] MEDS: HEPARIN DRIP 25,000 UNITS/500 ML PREMIX IV SCH (14:32)
[2018-03-04] MEDS: ALPRAZolam 0.5 MG TABLET PO PRN (14:40)
[2018-03-04] MEDS ORDERED: MAGNESIUM SULF RIDER 4 GM in PREMIX 1 EACH IV PRN (16:06)
[2018-03-04] MEDS ORDERED: MAGNESIUM SULF RIDER 2 GM in PREMIX 1 EACH IV PRN (16:06)
[2018-03-04] MEDS ORDERED: DILTIAZEM 30 MG TABLET PO SCH ×2 (16:14→21:00)
[2018-03-04] MEDS: METOPROLOL TARTRATE 25 MG TABLET PO SCH (21:00)
[2018-03-04] MEDS: DONEPEZIL 10 MG TABLET PO SCH (21:00)
[2018-03-05 03:30] LABS: Basophils # 0.1 10*3/uL (0.0-0.2); Basophils % 0.3 % (0.0-0.8); Eosinophils # 0.1 10*3/uL (0.0-0.87); Eosinophils % 0.4 % (0.00-10.9); Hematocrit 32.3 VOL% (35.7-47.0); Hemoglobin 9.7 GM/DL (12.0-16.0); Immature Granulocytes % 0.7 %; Lymphocytes # 2.3 10*3/uL (1.4-4.0); Lymphocytes % 8.7 % (21.3-54.2); Mean Corpuscular Hemoglobin 26 PG (27-34); Mean Corpuscular Volume 85.4 FL (87-102); Mean Platelet Volume 10.4 FL (9.6-12.0); Monocytes # 1.5 10*3/uL (0.11-0.8); Monocytes % 5.5 % (1.7-12.7); Neutrophils # 22.7 10*3/uL (1.4-7.4); Neutrophils % 84.4 % (38.7-73.9); Platelet Count 356 T/CUMM (130-400); Red Blood Count 3.78 MC/CUMM (3.8-5.5); Red Cell Distribution Width 14.3 % (9.3-17.3); White Blood Count 26.9 T/CUMM (4-12)
[2018-03-05] MEDS: VANCOMYCIN INJ 1,000 MG in SODIUM CHLORIDE 0.9% 250 ML IV SCH ×2 (03:36→22:52)
[2018-03-05 04:14] LABS: Calcium 8.1 MG/DL (8.5-10.1); Osmolality,Calculated 278.4 MOS/KG (273-304); Potassium 3.7 MMOL/L (3.5-5.1)
[2018-03-05 05:06] LABS: Hypochromasia 1+; Platelet Estimate Adequate
[2018-03-05] MEDS: LEVOTHYROXINE 88 MCG TABLET PO SCH (06:19)
[2018-03-05] MEDS: MEROPENEM 1,000 MG in SYRINGE 1 EACH IV SCH ×3 (06:19→23:15)
[2018-03-05] MEDS: FUROSEMIDE 40 MG/4 ML VIAL IV SCH ×2 (08:06→16:02)
[2018-03-05] MEDS: MAGNESIUM HYDROXIDE SUSP 30 ML UDCUP PO SCH (08:07)
[2018-03-05] MEDS: PRAVASTATIN 40 MG TABLET PO SCH (08:07)
[2018-03-05] MEDS: MULTIVITAMIN (OCUVITE) TABLET PO SCH (08:07)
[2018-03-05] MEDS: ESCITALOPRAM 10 MG TABLET PO SCH (08:07)
[2018-03-05] MEDS: GABAPENTIN 100 MG CAPSULE PO SCH ×3 (08:07→23:15)
[2018-03-05] MEDS: risperiDONE 0.5 MG TABLET PO SCH (08:08)
[2018-03-05] MEDS: traMADol 50 MG TABLET PO SCH ×2 (08:08→22:51)
[2018-03-05] MEDS: MEMANTINE 10 MG TABLET PO SCH ×2 (08:08→22:51)
[2018-03-05] MEDS: METOPROLOL TARTRATE 25 MG TABLET PO SCH ×3 (08:08→22:59)
[2018-03-05] MEDS: KETOROLAC 0.5% OPH SOLN 3 ML BOTTLE BOTH EYES SCH ×4 (08:08→22:58)
[2018-03-05] MEDS: LORATADINE 10 MG TABLET PO SCH (08:08)
[2018-03-05] MEDS: FUROSEMIDE 20 MG TABLET PER TUBE SCH (16:35)
[2018-03-05] MEDS: DONEPEZIL 10 MG TABLET PO SCH (22:51)
[2018-03-05] MEDS: APIXABAN 2.5 MG TABLET PO SCH (22:51)
[2018-03-06] MEDS: MEROPENEM 1,000 MG in SYRINGE 1 EACH IV SCH ×3 (06:13→21:17)
[2018-03-06] MEDS: LEVOTHYROXINE 88 MCG TABLET PO SCH (06:14)
[2018-03-06 06:19] LABS: Basophils % 0.3 % (0.0-0.8); Eosinophils # 0.3 10*3/uL (0.0-0.87); Eosinophils % 1.7 % (0.00-10.9); Hematocrit 33.4 VOL% (35.7-47.0); Hemoglobin 10.3 GM/DL (12.0-16.0); Immature Granulocytes % 0.6 %; Immature Granulocytes Absolute 0.09 #; Lymphocytes # 1.9 10*3/uL (1.4-4.0); Lymphocytes % 11.6 % (21.3-54.2); Mean Corpuscular HGB Conc 30.8 GM/DL (32-36); Mean Corpuscular Hemoglobin 27 PG (27-34); Mean Corpuscular Volume 86.3 FL (87-102); Mean Platelet Volume 9.6 FL (9.6-12.0); Monocytes % 6.5 % (1.7-12.7); Neutrophils # 12.7 10*3/uL (1.4-7.4); Neutrophils % 79.3 % (38.7-73.9); Platelet Count 344 T/CUMM (130-400); Red Blood Count 3.87 MC/CUMM (3.8-5.5); Red Cell Distribution Width 14.5 % (9.3-17.3)
[2018-03-06 06:46] LABS: Calcium 8.4 MG/DL (8.5-10.1); Osmolality,Calculated 284.3 MOS/KG (273-304); Potassium 3.4 MMOL/L (3.5-5.1)
[2018-03-06] MEDS: MULTIVITAMIN (OCUVITE) TABLET PO SCH (08:39)
[2018-03-06] MEDS: MAGNESIUM HYDROXIDE SUSP 30 ML UDCUP PO SCH (08:39)
[2018-03-06] MEDS: PRAVASTATIN 40 MG TABLET PO SCH (08:39)
[2018-03-06] MEDS: ESCITALOPRAM 10 MG TABLET PO SCH (08:40)
[2018-03-06] MEDS: MEMANTINE 10 MG TABLET PO SCH ×2 (08:40→21:16)
[2018-03-06] MEDS: traMADol 50 MG TABLET PO SCH ×2 (08:40→21:16)
[2018-03-06] MEDS: risperiDONE 0.5 MG TABLET PO SCH (08:40)
[2018-03-06] MEDS: GABAPENTIN 100 MG CAPSULE PO SCH ×3 (08:40→21:16)
[2018-03-06] MEDS: KETOROLAC 0.5% OPH SOLN 3 ML BOTTLE BOTH EYES SCH ×4 (08:41→21:18)
[2018-03-06] MEDS: APIXABAN 2.5 MG TABLET PO SCH ×2 (08:41→21:16)
[2018-03-06] MEDS: FUROSEMIDE 20 MG TABLET PER TUBE SCH ×2 (08:41→16:28)
[2018-03-06] MEDS: METOPROLOL TARTRATE 25 MG TABLET PO SCH ×2 (08:41→21:18)
[2018-03-06] MEDS: LORATADINE 10 MG TABLET PO SCH (08:41)
[2018-03-06] MEDS: POTASSIUM CHLORIDE RIDER 10 MEQ in PREMIX 1 EACH IV PRN ×3 (09:09→14:17)
[2018-03-06] MEDS: DONEPEZIL 10 MG TABLET PO SCH (21:17)
[2018-03-07 05:52] LABS: Basophils # 0.1 10*3/uL (0.0-0.2); Basophils % 0.4 % (0.0-0.8); Eosinophils # 0.4 10*3/uL (0.0-0.87); Eosinophils % 3.2 % (0.00-10.9); Hematocrit 32.9 VOL% (35.7-47.0); Immature Granulocytes % 1.1 %; Immature Granulocytes Absolute 0.13 #; Lymphocytes # 1.9 10*3/uL (1.4-4.0); Lymphocytes % 15.6 % (21.3-54.2); Mean Corpuscular HGB Conc 30.4 GM/DL (32-36); Mean Corpuscular Hemoglobin 27 PG (27-34); Mean Platelet Volume 9.5 FL (9.6-12.0); Monocytes # 1.2 10*3/uL (0.11-0.8); Monocytes % 9.4 % (1.7-12.7); Neutrophils # 8.7 10*3/uL (1.4-7.4); Neutrophils % 70.3 % (38.7-73.9); Platelet Count 335 T/CUMM (130-400); Red Blood Count 3.78 MC/CUMM (3.8-5.5); Red Cell Distribution Width 14.2 % (9.3-17.3); White Blood Count 12.3 T/CUMM (4-12)
[2018-03-07 06:11] LABS: Calcium 7.8 MG/DL (8.5-10.1); Osmolality,Calculated 284.4 MOS/KG (273-304); Potassium 3.6 MMOL/L (3.5-5.1); Prealbumin 6.5 MG/DL (20-40)
[2018-03-07] MEDS: LEVOTHYROXINE 88 MCG TABLET PO SCH (06:53)
[2018-03-07] MEDS: MEROPENEM 1,000 MG in SYRINGE 1 EACH IV SCH ×3 (06:53→22:19)
[2018-03-07] MEDS: FUROSEMIDE 20 MG TABLET PER TUBE SCH ×2 (11:20→18:11)
[2018-03-07] MEDS: GABAPENTIN 100 MG CAPSULE PO SCH ×3 (11:20→21:07)
[2018-03-07] MEDS: MEMANTINE 10 MG TABLET PO SCH ×2 (11:30→21:06)
[2018-03-07] MEDS: MAGNESIUM HYDROXIDE SUSP 30 ML UDCUP PO SCH (11:30)
[2018-03-07] MEDS: KETOROLAC 0.5% OPH SOLN 3 ML BOTTLE BOTH EYES SCH ×4 (11:30→21:07)
[2018-03-07] MEDS: LORATADINE 10 MG TABLET PO SCH (11:30)
[2018-03-07] MEDS: MULTIVITAMIN (OCUVITE) TABLET PO SCH (11:31)
[2018-03-07] MEDS: PRAVASTATIN 40 MG TABLET PO SCH (11:31)
[2018-03-07] MEDS: APIXABAN 2.5 MG TABLET PO SCH ×2 (11:31→21:07)
[2018-03-07] MEDS: risperiDONE 0.5 MG TABLET PO SCH (11:32)
[2018-03-07] MEDS: METOPROLOL TARTRATE 25 MG TABLET PO SCH ×2 (11:32→21:07)
[2018-03-07] MEDS: ESCITALOPRAM 10 MG TABLET PO SCH (11:32)
[2018-03-07] MEDS: traMADol 50 MG TABLET PO SCH ×2 (11:32→21:06)
[2018-03-07] MEDS: DONEPEZIL 10 MG TABLET PO SCH (21:07)
[2018-03-07 21:43] LABS: Apearance,Urine CLOUDY (Clear); Bilirubin,Urine Negative (Negative); Blood, Urine Large mg/dL (Negative); Glucose,Urine (UA) Negative (Negative); Ketones,Urine 5 mg/dL (Negative); Nitrite,Urine Negative (Negative); Protein,Urine 100 MG/DL; RBC,Urine 4095 /HPF (0-4); Urine Color Amber (Yellow); Urine Specific Gravity 1.026 (1.001-1.035); Urine Urobilinogen < 2.0 EU/DL (0.2-1.0); WBC,Urine 293 /HPF (0-6)
[2018-03-08] MEDS: MEROPENEM 1,000 MG in SYRINGE 1 EACH IV SCH ×3 (05:38→22:12)
[2018-03-08] MEDS: LEVOTHYROXINE 88 MCG TABLET PO SCH (05:38)
[2018-03-08] MEDS: MULTIVITAMIN (OCUVITE) TABLET PO SCH (11:06)
[2018-03-08] MEDS: cefTAZidime 500 MG in SYRINGE 1 EACH IV SCH ×3 (11:06→23:28)
[2018-03-08] MEDS: MAGNESIUM HYDROXIDE SUSP 30 ML UDCUP PO SCH (11:06)
[2018-03-08] MEDS: APIXABAN 2.5 MG TABLET PO SCH ×2 (11:06→21:29)
[2018-03-08] MEDS: ESCITALOPRAM 10 MG TABLET PO SCH (11:06)
[2018-03-08] MEDS: LORATADINE 10 MG TABLET PO SCH (11:07)
[2018-03-08] MEDS: risperiDONE 0.5 MG TABLET PO SCH (11:07)
[2018-03-08] MEDS: PRAVASTATIN 40 MG TABLET PO SCH (11:07)
[2018-03-08] MEDS: FUROSEMIDE 20 MG TABLET PER TUBE SCH ×2 (11:08→16:09)
[2018-03-08] MEDS: GABAPENTIN 100 MG CAPSULE PO SCH ×3 (11:08→21:29)
[2018-03-08] MEDS: KETOROLAC 0.5% OPH SOLN 3 ML BOTTLE BOTH EYES SCH ×4 (11:08→21:29)
[2018-03-08] MEDS: MEMANTINE 10 MG TABLET PO SCH ×2 (11:08→21:30)
[2018-03-08] MEDS: traMADol 50 MG TABLET PO SCH ×2 (11:09→21:29)
[2018-03-08] MEDS: METOPROLOL TARTRATE 25 MG TABLET PO SCH ×2 (11:09→21:30)
[2018-03-08] MEDS: ALPRAZolam 0.5 MG TABLET PO PRN (16:09)
[2018-03-08] MEDS: DONEPEZIL 10 MG TABLET PO SCH (21:29)
[2018-03-09] MEDS: MEROPENEM 1,000 MG in SYRINGE 1 EACH IV SCH (05:48)
[2018-03-09] MEDS: LEVOTHYROXINE 88 MCG TABLET PO SCH (05:48)
[2018-03-09] MEDS: GABAPENTIN 100 MG CAPSULE PO SCH (12:11)
[2018-03-09] MEDS: FUROSEMIDE 20 MG TABLET PER TUBE SCH (12:11)
[2018-03-09] MEDS: cefTAZidime 500 MG in SYRINGE 1 EACH IV SCH (12:11)
[2018-03-09 12:14] VITALS: BP 131/52
[2018-03-09] MEDS: KETOROLAC 0.5% OPH SOLN 3 ML BOTTLE BOTH EYES SCH (12:16)
[2018-03-09] MEDS: LORATADINE 10 MG TABLET PO SCH (12:17)
[2018-03-09] MEDS: APIXABAN 2.5 MG TABLET PO SCH (12:17)
[2018-03-09] MEDS: MEMANTINE 10 MG TABLET PO SCH (12:18)
[2018-03-09] MEDS: MAGNESIUM HYDROXIDE SUSP 30 ML UDCUP PO SCH (12:18)
[2018-03-09] MEDS: PRAVASTATIN 40 MG TABLET PO SCH (12:18)
[2018-03-09] MEDS: traMADol 50 MG TABLET PO SCH (12:18)
[2018-03-09] MEDS: risperiDONE 0.5 MG TABLET PO SCH (12:18)
[2018-03-09] MEDS: METOPROLOL TARTRATE 25 MG TABLET PO SCH (12:18)
[2018-03-09] MEDS: ESCITALOPRAM 10 MG TABLET PO SCH (12:18)
[2018-03-09] MEDS: MULTIVITAMIN (OCUVITE) TABLET PO SCH (12:18)
== END 2018-03-09 13:05 | DRG 871 ==
LOC: EDUNIT# → EDBD → N.ED 15:06 → SUATTDRO 18:27 → N.EDINP 18:27 → N.5E 20:08 → N.CC 03-03 04:30 → N.5E 03-05 22:22
PROVIDERS: ADMIT Internal Medicine